=== PATIENT | male | born 1970 | race Caucasian/White ===

== ENCOUNTER → 2016-09-30 | Outpatient (RCR) | payer OTHER, MEDICAID | END | disposition home or self-care (01) | LOC: M OUTALCOH 09-03 15:04 | PROVIDERS: ATTEND Psychiatry & Neurology Psychiatry | DX: F10.20 Alcohol dependence, uncomplicated (principal) ==

== ENCOUNTER 2016-10-27 08:45 | Outpatient (RCR) | payer OTHER, MEDICAID | END 2016-10-28 | LOC: M OUTALCOH 08:45 | PROVIDERS: ATTEND Psychiatry & Neurology Psychiatry | DX: F10.20 Alcohol dependence, uncomplicated (principal) ==

== ENCOUNTER 2016-11-27 14:00 | Outpatient (RCR) | payer OTHER, MEDICAID | END 2016-11-28 | LOC: M OUTALCOH 14:00 | PROVIDERS: ATTEND Psychiatry & Neurology Psychiatry | DX: F10.20 Alcohol dependence, uncomplicated (principal) ==

== ENCOUNTER 2017-01-27 09:00 | Outpatient (RCR) | payer OTHER | END 2017-01-28 | LOC: M OUTALCOH 09:00 | PROVIDERS: ATTEND Psychiatry & Neurology Psychiatry | DX: F10.20 Alcohol dependence, uncomplicated (principal) ==

== ENCOUNTER 2017-03-23 08:00 | Outpatient (RCR) | payer OTHER | END 2017-03-30 | LOC: M OUTALCOH 08:00 | PROVIDERS: ATTEND Psychiatry & Neurology Psychiatry | DX: F10.20 Alcohol dependence, uncomplicated (principal) ==

== ENCOUNTER 2017-04-13 08:00 | Outpatient (RCR) | payer OTHER | END 2017-04-30 | LOC: M OUTALCOH 08:00 | PROVIDERS: ATTEND Psychiatry & Neurology Psychiatry | DX: F10.20 Alcohol dependence, uncomplicated (principal) ==

== ENCOUNTER 2017-05-25 09:15 | Outpatient (RCR) | payer MEDICAID | END 2017-05-30 | LOC: M OUTALCOH 09:15 | PROVIDERS: ATTEND Psychiatry & Neurology Psychiatry | DX: F10.20 Alcohol dependence, uncomplicated (principal) ==

== ENCOUNTER → 2017-06-16 | Outpatient (REF) | payer MEDICAID | LOC: M LAB REF 09:36 | PROVIDERS: ATTEND Physician Assistant | DX: Z20.2 Contact with and (suspected) exposure to infections with a predominantly sexual mode of transmission (principal) ==

== ENCOUNTER 2017-07-29 08:00 | Outpatient (RCR) | payer MEDICAID | END 2017-07-30 | LOC: M OUTALCOH 08:00 | PROVIDERS: ATTEND Psychiatry & Neurology Psychiatry | DX: F10.20 Alcohol dependence, uncomplicated (principal) ==

== ENCOUNTER 2017-08-03 16:00 | Outpatient (RCR) | payer MEDICAID | END 2017-08-30 | LOC: M OUTALCOH 08-10 10:00 | DX: F10.20 Alcohol dependence, uncomplicated (principal) ==

== ENCOUNTER → 2017-10-30 | Outpatient (REF) | payer MEDICAID | LOC: M LAB REF 10:09 | DX: J02.9 Acute pharyngitis, unspecified (principal) ==

== ENCOUNTER → 2025-01-13 | Outpatient (CLI) | payer MEDICAID ==
[2025-01-13 14:21] LABS: BASO % 0.4 % (0.0-1.0); EOS % 0.2 % (0.0-3.0); HEMATOCRIT 43.7 % (42.0-52.0); HEMOGLOBIN 15.1 g/dl (13.5-17.5); LYMPH # 0.9 10^3/uL (1.5-5.0); LYMPH % 17.9 % (24.0-44.0); MEAN CORPUSCULAR HEMOGLOBIN 34.8 pg (27.0-33.0); MEAN CORPUSCULAR HGB CONC 34.6 g/dl (32.0-36.5); MEAN CORPUSCULAR VOLUME 100.7 fl (80.0-96.0); MONO # 0.6 10^3/uL (0.0-0.8); MONO % 11.6 % (2.0-8.0); NEUTROPHILS # 3.3 10^3/uL (1.5-8.5); NEUTROPHILS % 69.7 % (36.0-66.0); RED BLOOD COUNT 4.34 10^6/uL (4.30-6.10); WHITE BLOOD COUNT 4.7 10^3/uL (4.0-10.0)
[2025-01-13 14:47] LABS: ALKALINE PHOSPHATASE 88 U/L (40-129); ALT/SGPT 79 U/L (7.0-40); AST/SGOT 111 U/L (<34); BILIRUBIN,TOTAL 2.2 MG/DL (0.3-1.2); BLOOD UREA NITROGEN 8 MG/DL (9-23); CALCIUM LEVEL 9.2 MG/DL (8.5-10.1); CARBON DIOXIDE LEVEL 26 MMOL/L (20-31); CHLORIDE LEVEL 99 MMOL/L (98-107); CREATININE FOR GFR 0.63 MG/DL (0.70-1.30); GLOMERULAR FILTRATION RATE > 90.0 (>56); GLUCOSE, FASTING 100 MG/DL (60-100); IRON (FE) 220 UG/DL (65-175); PERCENT SATURATION 75.3 % (19.7-50.0); POTASSIUM SERUM 3.4 MMOL/L (3.5-5.1); SODIUM LEVEL 140 MMOL/L (136-145); TOTAL IRON BINDING CAPACITY 292 UG/DL (250-425); TOTAL PROTEIN 7.4 G/DL (5.7-8.2)
[2025-01-13 14:49] LABS: FOLATE 11.4 NG/ML (>5.4); VITAMIN B12 LEVEL 364 PG/ML (211-911)
[2025-01-13 14:54] LABS: PLATELET COUNT, AUTOMATED 91 10^3/uL (150-450)
[2025-01-17 16:48] LABS: LYME TOTAL ANTIBODY CIA <= 0.90 Index (<=0.90)
[2025-01-18 17:51] LABS: VITAMIN B1 LEVEL WHOLE BLOOD 111 nmol/L (78-185)
== END ==
LOC: M WUC 12:27
PROVIDERS: ATTEND Physician Assistant
DX: R20.2 Paresthesia of skin (principal)